=== PATIENT | male | born 1945 | race Caucasian/White ===

== ENCOUNTER 2017-09-20 14:02 | Outpatient (CLI) ==
--- NOTE | 2017-09-20 15:38 | CT ---
EXAM: CT of the cervical spine without contrast History: Neck pain and trauma. Comparison: None available. Technique: Multiplanar CT images through the cervical spine were obtained without the administration of IV contrast Findings: The visualized upper lungs are free of consolidation. There is mild diffuse thyroid enlar gement. The visualized airway remains patent. Atherosclerotic vascular calcifications. Partially v isualized left mastoid effusion. No acute fracture or subluxation of the cervical spine. No prevertebral soft tissue swelling. Prede ntal space is not widened. Moderate to severe disc space narrowing at C6-7 with endplate sclerosis a nd osteophyte formation. Moderate disc space narrowing at C5-6. Mild disc space narrowing seen elsew here. C2-3: No significant bony central canal stenosis. Mild to moderate bilateral bony neural foraminal n arrowing secondary to uncovertebral and facet hypertrophy. C3-4: Right paracentral disc protrusion effacing anterior thecal sac. There is mild central canal s tenosis. Moderate bilateral bony neural foraminal narrowing secondary to uncovertebral and facet hyp ertrophy. C4-5: Paracentral disc protrusion effacing anterior thecal sac with mild central canal stenosis. Se tanja left and moderate right bony neural foraminal narrowing secondary to uncovertebral and facet hyp ertrophy. C5-6: Moderate to large disc right paracentral disc protrusion effacing anterior thecal sac causing moderate central canal stenosis. Moderate to severe bilateral bony neural foraminal narrowing second francisco to uncovertebral and facet hypertrophy. C6-7: Posterior disc osteophyte complex moderately narrowing the central canal. Moderate to severe bilateral bony neural foraminal narrowing secondary to vertebral and facet hypertrophy. Impression: 1. No acute osseous abnormality of the cervical spine. 2. Moderate to severe degenerative disc disease at C6-7. 3. Level by level analysis as detailed above, most significant at C5-6 and C6-7. 4. Left mastoid effusion. 5. Mild diffuse thyroid enlargement
== END 2017-09-20 14:03 | disposition home or self-care (01) ==
LOC: RAD 14:02
PROVIDERS: ATTEND Emergency Medicine
DX: M54.2 Cervicalgia (principal)

== ENCOUNTER 2017-12-10 18:57 | Outpatient (CLI) | END 2017-12-10 19:14 | disposition short-term general hospital (02) | LOC: AMBL 18:57 | PROVIDERS: ATTEND Internal Medicine | DX: R53.1 Weakness (principal); R29.6 Repeated falls; M25.561 Pain in right knee; R41.0 Disorientation, unspecified; W19.XXXA Unspecified fall, initial encounter; Z86.73 Personal history of transient ischemic attack (TIA), and cerebral infarction without residual deficits ==

== ENCOUNTER 2017-12-30 07:48 | Emergency (ER) ==
[2017-12-30 08:07] VITALS: BP 156/92; TEMP 97.3; BMI 24.3
--- NOTE | 2017-12-30 08:44 | CT ---
EXAM: CT brain without contrast HISTORY: Fall TECHNIQUE: Multi-slice sequential. Coronal and sagittal reformations were performed. COMPARISON: None FINDINGS: There is no acute intracranial hemorrhage, extraxial fluid collection, mass affect, or midlineshift. Left frontal lobe encephalomalacia is present. Bilateral basal ganglia calcifications are present. There is mild diffuse sulcal prominence. Ventricular prominence is consistent with the degree of par enchymal volume loss. Periventricular white matter hypodensity is seen. Intracranial atherosclerosi s is present. The basal cisterns are patent. No large vascular territory area of hypodensity is see n within the brain. The calvarium is unremarkable. Bony irregularity of the inferior orbital wall is seen. Air-fluid levels are suggested in the maxill francisco sinuses. The left mastoid air cells are opacified. The right mastoid air cells appear clear. IMPRESSION: 1. No acute intracranial hemorrhage. 2. Left frontal lobe encephalomalacia. 3. Generalized atrophy and small vessel ischemic disease. 4. Cortical irregularity of the left inferior orbital wall suggesting fracture. Recommend CT facial bones for further evaluation. 5. Small air-fluid levels in the maxillary sinuses suggested. This can be seen with trauma or sinus disease. 6. Left mastoid effusion versus mastoiditis.
--- NOTE | 2017-12-30 08:50 | CT ---
EXAM: CT bony pelvis without contrast. HISTORY: Fall. TECHNIQUE: Multi-slice transaxial helical CT. Coronal and sagital reformations were performed. COMPARISON: None FINDINGS: No evidence of displaced pelvic fracture is seen. Mild bilateral hip joint space narrowing with vivien inal osteophytosis is present. The peak symphysis appears maintained. Mild narrowing of the bilatera l sacroiliac joints are present. Lower lumbar facet osteoarthritis is present. Atherosclerosis is present. Urinary bladder is distended measuring up to 16.1 cm in craniocaudal dalia gth. The prostate is on the upper limits of normal in size. Right femoral stent is partially imaged . IMPRESSION: 1. No evidence of displaced pelvic fracture. 2. Mild bilateral hip osteoarthritis. 3. Distended urinary bladder. 4. Atherosclerosis.
--- NOTE | 2017-12-30 09:25 | CT ---
EXAM: CT scan of the cervical spine without contrast HISTORY: Fall TECHNIQUE: Helical imaging of the cervical spine was performed without contrast. Sagittal and coron al reconstructions and axial images were provided for interpretation. Comparison none. FINDINGS: The occipital condyles, C1 ring appear intact. No acute abnormalities are seen within the odontoid process and C2 vertebral body. The spinous processes are intact. There is a normal alignm ent of the facet joints. No acute fractures are seen. IMPRESSION: No evidence of acute fracture dislocation seen within the cervical spine.
--- NOTE | 2017-12-30 09:28 | CT ---
EXAM: CT scan of the lumbar spine without contrast HISTORY: Patient fell. TECHNIQUE: Helical imaging of the lumbar spine was performed without contrast. Sagittal and coronal reconstructions and axial images were provided for interpretation. FINDINGS: The alignment of the lumbar spine is normal. There is no evidence of compression fracture . The paraspinal soft tissues are normal. The sacrum appears intact. The transverse processes are intact. IMPRESSION: No evidence of acute fracture seen within the lumbar spine.
--- NOTE | 2017-12-30 09:29 | CT ---
EXAM: CT thoracic spine without contrast HISTORY: Fall, trauma TECHNIQUE: Multislice helical with reformatted images COMPARISON: None FINDINGS: There is moderate to severe narrowing of the upper thoracic intervertebral joint spaces. The more caudad intervertebral levels are mildly narrowed. A minimal leftward curvature is noted wit hout overt scoliosis. No acute fracture or listhesis are appreciated. No suspicious osteolytic or o steoblastic lesions are detected. No significant disc herniation or central canal stenosis are appreciated. There is suggestion of min imal bilateral neural foramen stenosis at T3-T4 and T2-T3 secondary to facet hypertrophy. IMPRESSION: 1. Diffuse degenerative disc disease. 2. No acute fracture or listhesis. 3. Minimal bilateral neural foramen stenosis at T3-T4 and T2-T3 secondary to facet hypertrophy.
--- NOTE | 2017-12-30 09:31 | CT ---
EXAM: CT maxillofacial bones without contrast HISTORY: Fall, trauma TECHNIQUE: Multi-slice transaxial helical with coronal and sagittal reformed images FINDINGS: Mild mucous membrane thickening is detected in the frontal sinus, ethmoid air cells, and alee th maxillary sinuses. There is minimal mucosal thickening thickening in the sphenoid sinus. No acut e facial bone fractures are appreciated. Mandibular condyles are seen in the glenoid fossa. Bilater al carotid calcifications are noted. IMPRESSION: 1. Mild diffuse paranasal sinus disease. 2. No acute fracture or subluxation. 3. Bilateral carotid ASCVD.
--- NOTE | 2017-12-30 09:34 | CT ---
EXAM: CT chest without contrast HISTORY: Fall TECHNIQUE: Multi-slice transaxial helical. Coronal and sagital reformations were performed. COMPARISON: None FINDINGS: The heart is normal in size. Operative changes of midline sternotomy is seen. Calcified plaques are present within the thoracic aorta as well as the coronary arteries. Mediastinal calcified granuloma s are present. No evidence of mediastinal adenopathy is seen. Visualized thyroid appears unremarkable. There is no axillary adenopathy. Bilateral gynecomastia is present. Nonspecific stranding densities are seen surrounding the kidneys. The gallbladder has bee n removed. No evidence of hemorrhage about the spleen or liver is seen. Otherwise the partially gracia ged upper abdomen appears unremarkable within the confines of this exam. No evidence of displaced rib fracture is seen. Bilateral glenohumeral joint space narrowing is present. The visualized vertebra l body heights of the thoracic spine appear preserved. Multilevel small endplate osteophytes are pre sent. The sternum appears intact. Carotid atherosclerosis is present. Bilateral scattered calcified granulomas are present. No focal airspace opacity or pleural effusion is seen. No evidence of pneumothorax is seen. IMPRESSION: 1. No acute post traumatic changes of the chest. 2. Atherosclerosis including coronary disease. 3. Prior midline sternotomy. 4. Additional operative and senescent findings as above.
--- NOTE | 2017-12-30 09:37 | DI ---
EXAM: 3 views of the right knee. HISTORY: Fall COMPARISON: None FINDINGS: There is no acute fracture or dislocation. Joint spaces and alignment are maintained. There is no sizeable knee joint effusion. Surgical clips are present along the medial right knee. A vasc ular stent overlies the femoral vessels. No evidence of knee joint effusion is seen. IMPRESSION: No acute osseous abnormality of the knee.
--- NOTE | 2017-12-30 10:12 | ED.PDOC ---
General ED Provider: Dr. SANDRA COURTNEY-ER Chief Complaint: Fall Stated Complaint: he fell at longterm today--notd bs to be low Time Seen by Physician: 08:00 Mode of Arrival: Ambulance Information Source: [facility], EMT Exam Limitations: No limitations [facility] Nursing and Triage Documentation Reviewed and Agree: Yes Does patient meet sepsis criteria?: No System Inflammatory Response Syndrome: Not Applicable Sepsis Protocol: For patient's 13 years and over: Temp is 96.8 and below OR 101 and greater Pulse >90 BPM Resp >20/minute Acutely Altered Mental Status Are patient's symptoms suggestive of a new infection, such as: -Pneumonia -Skin, Soft Tissue -Endocarditis -UTI -Bone, Joint Infection -Implantable Device -Acute Abdominal Infection -Wound Infection -Meningitis -Blood Stream Catheter Infection -Unknown Trauma/Injury Complaint Exam - Trauma Complaint/Exam Location of Pain or Injury: Reports: Head Mechanism of Injury: Reports: Fall Symptoms Are: Resolved Initial Severity: Mild Current Severity: None Character: Reports: Dull Alleviating: Reports: None Associated Signs and Symptoms: Denies: LOC, Confusion, Memory loss, Lethargy, Vomiting, Bleeding, Bruising, Swelling, Extremity disuse, Painful respiration, Hoarseness, Dysphagia, Hemoptysis, Significant blood loss Penetrating Injury Risk Factors: Reports: None Related Surgical History: Reports: None Immobilization Removed Post Exam: No Skin Findings: Present: Normal findings Differential Diagnoses: Other Review of Systems - Review Of Systems Constitutional: Reports: No symptoms Eyes: Reports: No symptoms Ears, Nose, Mouth, Throat: Reports: No symptoms Respiratory: Reports: No symptoms Cardiac: Reports: No symptoms GI: Reports: No symptoms : Reports: No symptoms Musculoskeletal: Reports: No symptoms Skin: Reports: No symptoms Neurological: Reports: No symptoms Endocrine: Reports: No symptoms Hematologic/Lymphatic: Reports: No symptoms All Other Systems: Reviewed and Negative Past Medical History - Past Medical History Previously Healthy: No Endocrine: Reports: Unknown Cardiovascular: Reports: Unknown Respiratory: Reports: Unknown Hematological: Reports: Unknown Gastrointestinal: Reports: Unknown Genitourinary: Reports: Unknown Neuro/Psych: Reports: Unknown Musculoskeletal: Reports: Unknown Cancer: Reports: Unknown - Surgical History General Surgical History: Reports: Unknown - Family History Family History: Reports: Unknown - Social History Smoking Status: Unknown if ever smoked Hx Substance Use: No Alcohol Screening: None - Immunizations Tetanus Shot up to Date: No Physical Exam - Physical Exam Appearance: Well-appearing, No pain distress, Well-nourished Eyes: JUSTIN, EOMI, Conjunctiva clear ENT: Ears normal, Nose normal, Oropharynx normal Neck: Supple Respiratory: Airway patent, Breath sounds clear, Breath sounds equal, Respirations nonlabored Cardiovascular: RRR, Pulses normal, No rub, No murmur GI/: Soft, Nontender, No masses, Bowel sounds normal, No Organomegaly Musculoskeletal: Normal strength, ROM intact, No edema, No calf tenderness Skin: Warm Neurological: Sensation intact, Motor intact, Reflexes intact, Cranial nerves intact, Alert, Oriented Psychiatric: Affect appropriate, Mood appropriate Interpretation - Radiology Interpretation Radiology Interpretation By: Radiologist Radiology Results: Negative Exam Interpreted: CT Scan - EKG Interpretation Time of EKG #1: 10:12 Rate: Tachy Rhythm: Other Ectopy: None [place]: NL ST Segment: Normal Interpretation: afib Critical Care Note - Critical Care Note Total Time (mins): 0 Course - Course Hematology/Chemistry: 12/30/17 08:05 12/30/17 08:05 Orders, Labs, Meds: Lab Review 12/30/17 12/30/17 12/30/17 08:05 08:05 08:50 WBC 16.18 H RBC 4.95 Hgb 15.5 Hct 46.7 MCV 94.3 H MCH 31.3 H MCHC 33.2 RDW Coeff of Dyan 13.0 Plt Count 315 Immature Gran % (Auto) 0.9 Neut % (Auto) 82.7 Lymph % (Auto) 9.5 L Sargent % (Auto) 5.8 Eos % (Auto) 0.6 Baso % (Auto) 0.5 Immature Gran # (Auto) 0.1 Neut # (Auto) 13.4 H Lymph # (Auto) 1.5 Sargent # (Auto) 0.9 Eos # (Auto) 0.1 Baso # (Auto) 0.1 Sodium 139.2 Potassium 4.01 Chloride 102.9 Carbon Dioxide 32.3 H Anion Gap 8.01 BUN 17.2 Creatinine 0.88 Estimated GFR (MDRD) 85.00 BUN/Creatinine Ratio 19.54 Glucose 169.7 H Calcium 9.59 Total Bilirubin 0.51 AST 45.2 ALT 48.9 Alkaline Phosphatase 101.7 Total Creatine Kinase 43.6 L Troponin I 0.018 Total Protein 7.28 Albumin 3.99 Globulin 3.29 Albumin/Globulin Ratio 1.21 Urine Color Yellow Urine Clarity Clear Urine pH 5.0 Ur Specific Hoople 1.015 Urine Protein Negative Urine Glucose (UA) Negative Urine Ketones Negative Urine Blood Negative Urine Nitrite Negative Urine Bilirubin Negative Urine Urobilinogen 0.2 Ur Leukocyte Esterase Negative Orders Category Date Time Status EKG-(ED ONLY) Stat CARDIO 12/30/17 07:51 Completed Customer Relationship Specialist [ED ASPHALT ENGINEER APPLIED] .ONCE EMERGENCY 12/30/17 07:52 Active CBC W/ AUTO DIFF Stat LAB 12/30/17 08:05 Completed COMPREHENSIVE METABOLIC PANEL Stat LAB 12/30/17 08:05 Completed CREATINE KINASE Stat LAB 12/30/17 08:05 Completed TROPONIN I Stat LAB 12/30/17 08:05 Completed URINALYSIS C & S IF INDICATED Stat LAB 12/30/17 08:[address] CERVICAL SPINE W/O CONTRAST Stat RADS 12/30/17 08:[address] CHEST W/O CONTRAST Stat RADS 12/30/17 08:[address] HEAD W/O CONTRAST Stat RADS 12/30/17 07:[address] LUMBAR SPINE W/O CONTRAST Stat RADS 12/30/17 08:[address] MAXILLOFACIAL W/O CONTRAST Stat RADS 12/30/17 08:[address] PELVIS W/O CONTRAST Stat RADS 12/30/17 08:[address] THORACIC SPINE W/O CONTRAST Stat RADS 12/30/17 08:37 Completed KNEE, RIGHT 4 VIEWS Stat RADS 12/30/17 08:00 Completed Vital Signs: Temp Pulse Resp BP Pulse Ox 12/30/17 07:51 97.3 F L 96 H 16 156/92 H 99 Departure - Departure Time of Disposition: 10:12 Disposition: TRANSFER SNF Discharge Problem: Falls Instructions: Fall Prevention for Older Adults (ED) Condition: Stable Pt referred to PMD for follow-up: Yes IPMP verified?: No Additional Instructions: be sure and monitor bs the rest of the day Allergies/Adverse Reactions: Allergies No Known Allergies Allergy (Unverified 12/30/17 08:12) Disposition Discussed With: Family
== END 2017-12-30 10:34 ==
LOC: ED 07:48
DX: S09.90XA Unspecified injury of head, initial encounter (principal); E16.2 Hypoglycemia, unspecified; W19.XXXA Unspecified fall, initial encounter; Z86.73 Personal history of transient ischemic attack (TIA), and cerebral infarction without residual deficits; I10 Essential (primary) hypertension; E11.9 Type 2 diabetes mellitus without complications; G30.9 Alzheimer's disease, unspecified; F02.80 Dementia in other diseases classified elsewhere, unspecified severity, without behavioral disturbance, psychotic disturbance, mood disturbance, and anxiety
CPT/HCPCS: 36415; 80053; 81001; 82550; 84484; 85025; 93005; 93010; 99283

== ENCOUNTER 2018-01-11 16:50 | Outpatient (CLI) | END 2018-01-11 17:07 | disposition short-term general hospital (02) | LOC: AMBL 16:50 | PROVIDERS: ATTEND Internal Medicine | DX: R41.0 Disorientation, unspecified (principal); R47.81 Slurred speech; Z86.73 Personal history of transient ischemic attack (TIA), and cerebral infarction without residual deficits ==

== ENCOUNTER 2018-01-21 23:58 | Emergency (ER) ==
[2018-01-22 00:19] VITALS: BP 144/69; TEMP 97.5
[2018-01-22 00:24] VITALS: BMI 27.5
--- NOTE | 2018-01-22 00:42 | CT ---
EXAM: CT head without contrast. HISTORY: Fall. PROCEDURE: Contiguous axial CT images of the head without contrast with coronal and sagittal reforma ts. FINDINGS: Comparison made with CT head of 12/30/2017. There is diffuse cerebral atrophy. The ventric les and basal cisterns are normal in size and configuration. No evidence of mass or midline shift. No intracranial hemorrhage or evidence of new large vessel infarct. 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 There are chronic small vessel ischemic changes in the white matter. No extra-ax ial fluid collection. There are bilateral basal ganglia calcifications. There is opacification of th e left mastoid air cells. The right mastoid air cells and paranasal sinuses are normal in appearance . No skull fracture. Impression: No intracranial hemorrhage or skull fracture. 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 Chronic small vessel ischemic changes. Diffuse cerebral atrophy. Left mastoiditis.
--- NOTE | 2018-01-22 01:00 | CT ---
CT cervical spine without contrast HISTORY: Fall TECHNIQUE: CT of the cervical spine with multiplanar reformations. FINDINGS: Reformatted images demonstrate normal alignment with preservation of vertebral body height . Endplate spondylosis and facet arthropathy changes. No fracture seen on the axial or reformatted i mages. No acute surrounding soft tissue abnormalitites. Lung apices are clear. IMPRESSION: No acute findings in the cervical spine.
--- NOTE | 2018-01-22 01:11 | ED.PDOC ---
General ED Provider: Dr. SANDRA COURTNEY-ER Chief Complaint: Fall Stated Complaint: fell on the floot and struck head--no loc or vomiting Time Seen by Physician: 00:15 Mode of Arrival: Wheelchair Information Source: Patient Exam Limitations: Dementia Primary Care Provider: [facility] Nursing and Triage Documentation Reviewed and Agree: Yes Does patient meet sepsis criteria?: No System Inflammatory Response Syndrome: Not Applicable Sepsis Protocol: For patient's 13 years and over: Temp is 96.8 and below OR 101 and greater Pulse >90 BPM Resp >20/minute Acutely Altered Mental Status Are patient's symptoms suggestive of a new infection, such as: -Pneumonia -Skin, Soft Tissue -Endocarditis -UTI -Bone, Joint Infection -Implantable Device -Acute Abdominal Infection -Wound Infection -Meningitis -Blood Stream Catheter Infection -Unknown Trauma/Injury Complaint Exam - Head Injury Complaint/Exam Location of Pain: Reports: Scalp Mechanism of Injury: Reports: Trauma Onset/Duration: one hour Symptoms Are: Resolved Initial Severity: Mild Current Severity: None Character: Reports: Dull Aggravating: Reports: None Alleviating: Reports: None Associated Signs and Symptoms: Denies: Confusion, Memory loss, Seizure, Epistaxis, Dental malocclusion, Neck pain, Nausea, Vomiting Loss of Consciousness: None SDH Risk Factors: Present: None Cervical Spine Injury Risk Factors: Present: None Related Surgical History: Reports: None Immobilization Removed Post Exam: No Head Injury Findings: Present: Normal findings Glascow Coma Scale (see protocol): 15 Focal Weakness: Present: None Focal Sensory Loss: Present: None Gait: Abnormal Gag Reflex Present: Yes Differential Diagnoses: Trauma Review of Systems - Review Of Systems Constitutional: Reports: No symptoms Eyes: Reports: No symptoms Ears, Nose, Mouth, Throat: Reports: No symptoms Respiratory: Reports: No symptoms Cardiac: Reports: No symptoms GI: Reports: No symptoms : Reports: No symptoms Musculoskeletal: Reports: No symptoms Skin: Reports: No symptoms Neurological: Reports: No symptoms Endocrine: Reports: No symptoms Hematologic/Lymphatic: Reports: No symptoms All Other Systems: Reviewed and Negative Past Medical History - Past Medical History Previously Healthy: No Endocrine: Reports: Unknown Cardiovascular: Reports: Unknown Respiratory: Reports: Unknown Hematological: Reports: Unknown Gastrointestinal: Reports: Unknown Genitourinary: Reports: Unknown Neuro/Psych: Reports: Unknown Musculoskeletal: Reports: Unknown Cancer: Reports: Unknown - Surgical History General Surgical History: Reports: Unknown - Family History Family History: Reports: Unknown - Social History Smoking Status: Unknown if ever smoked Hx Substance Use: No Alcohol Screening: None - Immunizations Tetanus Shot up to Date: No (unknown) Physical Exam - Physical Exam Appearance: Well-appearing, No pain distress, Well-nourished Eyes: JUSTIN, EOMI, Conjunctiva clear ENT: Ears normal, Nose normal, Oropharynx normal Neck: Supple Respiratory: Airway patent, Breath sounds clear, Breath sounds equal, Respirations nonlabored Cardiovascular: RRR, Pulses normal, No rub, No murmur GI/: Soft Musculoskeletal: Normal strength, ROM intact, No edema, No calf tenderness Skin: Warm Neurological: Sensation intact, Motor intact, Reflexes intact, Cranial nerves intact, Alert, Oriented Psychiatric: Affect appropriate Interpretation - Radiology Interpretation Radiology Interpretation By: Radiologist Radiology Results: Negative Exam Interpreted: CT Scan Re-Evaluation - Re-Evaluation Time of Re-Evaluation: 01:10 Status: Improved Vital Signs Stable: Yes Pain Level: 0 Appearance: NAD Lungs: Clear Skin: Warm and Dry Neuro: Alert and Oriented X3 CV: RRR Additional Comments: denies any other injury--pelvis stable to [place] Critical Care Note - Critical Care Note Total Time (mins): 0 Course - Course Orders, Labs, Meds: Orders Category Date Time Status CT CERVICAL SPINE W/O CONTRAST Stat RADS 01/22/18 00:[address] HEAD W/O CONTRAST Stat RADS 01/22/18 00:19 Completed Vital Signs: Temp Pulse Resp BP Pulse Ox 01/22/18 00:10 97.5 F L 72 20 144/69 H 96 Departure - Departure Time of Disposition: 01:11 Disposition: HOME SELF-CARE Discharge Problem: Head injury Qualifiers: Encounter type: initial encounter Qualified Code(s): S09.90XA - Unspecified injury of head, initial encounter Instructions: Head Injury (ED) Condition: Good Pt referred to PMD for follow-up: Yes IPMP verified?: No Additional Instructions: rtn prn Allergies/Adverse Reactions: Allergies No Known Allergies Allergy (Verified 01/22/18 00:17) Home Medications: Ambulatory Orders Acetaminophen [Tylenol] 650 mg PO Q6H PRN 01/22/18 Apixaban [Eliquis] 5 mg PO BID 01/22/18 Aspirin [Aspirin EC] 81 mg PO DAILY 01/22/18 Cilostazol [Pletal] 100 mg PO DAILY 01/22/18 Donepezil HCl [Aricept] 5 mg PO DAILY 01/22/18 Duloxetine HCl [Cymbalta] 60 mg PO DAILY 01/22/18 Insulin Lispro [Humalog] 0 unit SUBCUT DIRECTED PRN 01/22/18 Nitroglycerin [Nitrostat] 0.4 mg SL Q5MIN X 3 DOSES PRN 01/22/18 Disposition Discussed With: Patient
== END 2018-01-22 01:30 | disposition home or self-care (01) ==
LOC: ED 23:58
DX: S09.90XA Unspecified injury of head, initial encounter (principal); W19.XXXA Unspecified fall, initial encounter
CPT/HCPCS: 99283

== ENCOUNTER 2018-04-15 09:22 | Outpatient (CLI) ==
--- NOTE | 2018-04-15 11:25 | US ---
Exam: Hoffman-scale and color duplex Doppler ultrasonographic evaluation of the carotid arteries with s pectral waveform analysis. Comparison: None available. Reason for exam: Right Bruit FINDINGS: There is a [id number] amount of atheromatous plaque seen in the right proximal inte rnal carotid artery at the level of the bulb with a mild to moderate amount of atheromatous plaque in the left internal carotid artery at the level of the bulb. Right ECA 254 cm/sec Right CCA 78 cm/sec Right internal carotid artery peak systolic velocity 107 cm/sec. Right internal carotid artery/CCA PSV ratio 1.4 Right internal carotid artery end-diastolic velocity 13.4 cm/sec. Normal antegrade right vertebral artery flow. Left ECA 86 cm/sec Left CCA 85 cm/sec Left internal carotid artery peak systolic velocity 80 cm/sec. Left internal carotid artery/CCA PSV ratio 0.9 Left internal carotid artery end-diastolic velocity 12 cm/sec. There is normal antegrade left vertebral artery flow. Impression: 1. No significant stenotic disease is seen by peak systolic velocity measurements in either the righ t or left internal carotid arteries. 2. There is a moderate amount of atheromatous plaque seen in the right internal carotid artery at th e level of the bulb that appears more significant that would be suggested by peak systolic velocity measurements. 3. Normal antegrade vertebral artery flow was seen bilaterally.
== END 2018-04-15 09:23 | disposition home or self-care (01) ==
LOC: RAD 09:22
PROVIDERS: ATTEND General Practice
DX: R09.89 Other specified symptoms and signs involving the circulatory and respiratory systems (principal)

== ENCOUNTER 2018-04-23 17:34 | Outpatient (CLI) | END 2018-04-23 17:50 | disposition short-term general hospital (02) | LOC: AMBL 17:34 | PROVIDERS: ATTEND Internal Medicine | DX: M25.551 Pain in right hip (principal); R51 Headache; R10.9 Unspecified abdominal pain; W19.XXXA Unspecified fall, initial encounter ==

== ENCOUNTER 2018-05-30 15:46 | Outpatient (CLI) | END 2018-05-30 16:09 | disposition short-term general hospital (02) | LOC: AMBL 15:46 | PROVIDERS: ATTEND Emergency Medicine | DX: R41.82 Altered mental status, unspecified (principal); R44.3 Hallucinations, unspecified; R25.1 Tremor, unspecified; Z86.73 Personal history of transient ischemic attack (TIA), and cerebral infarction without residual deficits ==

== ENCOUNTER 2018-06-12 15:10 | Outpatient (CLI) | END 2018-06-12 15:11 | disposition home or self-care (01) | LOC: NONPT 15:10 | PROVIDERS: ATTEND General Practice | DX: N39.0 Urinary tract infection, site not specified (principal) | CPT/HCPCS: 81001; 87086; 87186 ==

== ENCOUNTER 2018-06-16 12:13 | Outpatient (CLI) | END 2018-06-16 12:31 | disposition short-term general hospital (02) | LOC: AMBL 12:13 | PROVIDERS: ATTEND Internal Medicine | DX: S09.90XA Unspecified injury of head, initial encounter (principal); S89.90XA Unspecified injury of unspecified lower leg, initial encounter; M25.559 Pain in unspecified hip; M25.511 Pain in right shoulder; W05.0XXA Fall from non-moving wheelchair, initial encounter; Y92.129 Unspecified place in nursing home as the place of occurrence of the external cause ==

== ENCOUNTER 2018-06-19 21:55 | Outpatient (CLI) | END 2018-06-19 22:30 | disposition short-term general hospital (02) | LOC: AMBL 21:55 | PROVIDERS: ATTEND Family Medicine | DX: R07.9 Chest pain, unspecified (principal); R25.1 Tremor, unspecified; R06.9 Unspecified abnormalities of breathing; M25.572 Pain in left ankle and joints of left foot; M25.571 Pain in right ankle and joints of right foot; M79.605 Pain in left leg; M79.604 Pain in right leg; R26.81 Unsteadiness on feet; Z86.73 Personal history of transient ischemic attack (TIA), and cerebral infarction without residual deficits ==

== ENCOUNTER 2018-07-02 08:27 | Outpatient (CLI) | END 2018-07-02 08:28 | disposition home or self-care (01) | LOC: NONPT 08:27 | PROVIDERS: ATTEND General Practice | DX: N39.0 Urinary tract infection, site not specified (principal) | CPT/HCPCS: 81001; 87086; 87186 ==

== ENCOUNTER 2018-07-10 12:31 | Outpatient (CLI) | END 2018-07-10 12:32 | disposition home or self-care (01) | LOC: NONPT 12:31 | PROVIDERS: ATTEND General Practice | DX: N39.0 Urinary tract infection, site not specified (principal) | CPT/HCPCS: 81001; 87086; 87186 ==

== ENCOUNTER 2018-08-13 15:18 | Outpatient (CLI) | END 2018-08-13 15:38 | disposition short-term general hospital (02) | LOC: AMBL 15:18 | PROVIDERS: ATTEND Emergency Medicine | DX: R51 Headache (principal); R40.4 Transient alteration of awareness; R41.0 Disorientation, unspecified; R40.2411 Glasgow coma scale score 13-15, in the field [EMT or ambulance] ==

== ENCOUNTER 2018-08-18 18:20 | Outpatient (CLI) | payer OTHER | END 2018-08-18 18:36 | disposition short-term general hospital (02) | LOC: AMBL 18:20 | PROVIDERS: ATTEND Emergency Medicine | DX: R07.9 Chest pain, unspecified (principal); R41.0 Disorientation, unspecified; R11.10 Vomiting, unspecified; I48.91 Unspecified atrial fibrillation; I95.9 Hypotension, unspecified ==

== ENCOUNTER 2018-11-07 06:53 | Outpatient (CLI) | END 2018-11-07 06:54 | disposition home or self-care (01) | LOC: NONPT 06:53 | PROVIDERS: ATTEND General Practice | DX: N39.0 Urinary tract infection, site not specified (principal); Z79.899 Other long term (current) drug therapy | CPT/HCPCS: 80053; 84145; 85025 ==

== ENCOUNTER 2018-11-08 08:29 | Outpatient (CLI) | END 2018-11-08 08:30 | disposition home or self-care (01) | LOC: NONPT 08:29 | PROVIDERS: ATTEND General Practice | DX: Z79.899 Other long term (current) drug therapy (principal) | CPT/HCPCS: 82607 ==

== ENCOUNTER 2018-11-17 20:01 | Outpatient (CLI) | END 2018-11-17 20:17 | disposition short-term general hospital (02) | LOC: AMBL 20:01 | PROVIDERS: ATTEND Internal Medicine Geriatric Medicine | DX: R06.03 Acute respiratory distress (principal); R53.83 Other fatigue; R41.0 Disorientation, unspecified; M79.604 Pain in right leg; F03.90 Unspecified dementia, unspecified severity, without behavioral disturbance, psychotic disturbance, mood disturbance, and anxiety; R73.9 Hyperglycemia, unspecified ==